=== PATIENT | male | born 1965 | race Caucasian/White ===

== ENCOUNTER 2019-07-08 03:35 | Inpatient (IN) | payer BC ==
[2019-07-08] MEDS ORDERED: IPRATROPIUM/ALBUTEROL (0.5MG/3MG) NEB INH ONE (03:50)
[2019-07-08] MEDS ORDERED: METHYLPREDNISOLONE PF 125MG/VIAL IVP ONE (04:01)
--- NOTE | 2019-07-08 04:19 | Emergency Department Record ---
History of Present Illness - General Chief Complaint: Shortness of breath Stated Complaint: SOB Time Seen by Provider: 07/08/19 03:51 Source: Patient Mode of Arrival: Ambulatory Limitations: No limitations - History of Present Illness Initial Comments: pt started running a fever and went to see his dr 4 days ago. he was told he had the flu but was not tested. he was given tamiflu,steroids and an inhaler. he has been using the inhaler more and more as he feels he cant breathe. he has not had a fever for 2 days MD Complaint: Shortness of breath -: Days(s) Severity: Moderate Consistency: Getting worse Improves With: Nothing Context: Recent illness Associated Symptoms: Cough, Fever - Related Data Home Medications Medication Instructions Recorded Confirmed Last Taken Albuterol Sulfate [Ventolin Hfa] 1 - 2 puff IH .EVERY 4-6 HOURS PRN 07/08/19 07/08/19 07/07/19 Oseltamivir Phosphate [Tamiflu] 75 mg PO BID 07/08/19 07/08/19 07/07/19 Prednisone [Prednisone 5Mg] 5 mg PO DAILY 07/08/19 07/08/19 07/07/19 Allergies Allergy/AdvReac Type Severity Reaction Status Date / Time Penicillins Allergy PT UNSURE Verified 07/08/19 03:40 OF REACTION Sulfa (Sulfonamide Allergy PT UNSURE Verified 07/08/19 03:40 Antibiotics) OF REACTION Travel Screening - Travel/Exposure Within Last 30 Days Have you traveled within the last 30 days?: No - Travel Symptoms Symptom Screening: None Review of Systems Reviewed: No additional complaints except as noted below Constitutional: Reports: As per HPI. Denies: Chills, Fever, Malaise, Night sweats, Weakness, Weight change Eyes: Reports: As per HPI. Denies: Eye discharge, Eye pain, Photophobia, Vision change ENT: Reports: As per HPI. Denies: Congestion, Dental pain, Ear pain, Epistaxis, Hearing loss, Throat pain Respiratory: Reports: As per HPI, Dyspnea. Denies: Cough, Hemoptysis, Stridor, Wheezes Cardiovascular: Reports: As per HPI. Denies: Arrhythmia, Chest pain, Dyspnea on exertion, Edema, Murmurs, Orthopnea, Palpitations, Paroxysmal nocturnal dyspnea, Rheumatic Fever, Syncope Endocrine: Reports: As per HPI. Denies: Fatigue, Heat or cold intolerance, Polydipsia, Polyuria Gastrointestinal: Reports: As per HPI. Denies: Abdominal pain, Constipation, Diarrhea, Hematemesis, Hematochezia, Melena, Nausea, Vomiting Genitourinary: Reports: As per HPI. Denies: Dysuria, Frequency, Hematuria, Incontinence, Retention, Testicular pain, Testicular mass, Urgency Musculoskeletal: Reports: As per HPI. Denies: Arthralgia, Back pain, Gout, Joint swelling, Myalgia, Neck pain Skin: Reports: As per HPI. Denies: Bruising, Change in color, Change in hair/nails, Lesions, Pruritus, Rash Neurological: Reports: As per HPI. Denies: Abnormal gait, Confusion, Headache, Numbness, Paresthesias, Seizure, Tingling, Tremors, Vertigo, Weakness Psychiatric: Reports: As per HPI. Denies: Anxiety, Auditory hallucinations, Depression, Homicidal thoughts, Suicidal thoughts, Visual hallucinations Hematological/Lymphatic: Reports: As per HPI. 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 - GI Hx GI Disorders: No - Hx Genitourinary Disorders: No - ENDOCRINE Hx Endocrine Disorders: No - MUSCULOSKELETAL Hx Musculoskeletal Disorders: No - PSYCH Hx Psych Problems: No - HEMATOLOGY/ONCOLOGY Hx Hematology/Oncology Disorders: No Family Medical History Any Significant Family History?: Yes Hx Cancer: Mother *Cancer Comment: uterine Physical Exam - General General Appearance: Alert, Oriented x3, Cooperative, Mild distress - Head Head exam: Normal inspection - Eye Eye exam: Normal appearance, PERRL, EOMI Pupils: Normal accommodation - ENT ENT exam: Normal exam, Mucous membranes moist, Normal external ear exam, Normal orophraynx Ear exam: Normal external inspection. negative: External canal tenderness Nasal Exam: Normal inspection. negative: Discharge, Sinus tenderness Mouth exam: Normal external inspection, Tongue normal Teeth exam: Normal inspection. negative: Dental caries Throat exam: Normal inspection. negative: Tonsillar erythema, Tonsillar exudate - Neck Neck exam: Normal inspection, Full ROM. negative: Tenderness - Respiratory Respiratory exam: Respiratory distress, Wheezes - Cardiovascular Cardiovascular Exam: Regular rate, Normal rhythm, Normal heart sounds - GI/Abdominal GI/Abdominal exam: Soft, Normal bowel sounds. negative: Tenderness - Rectal Rectal exam: Deferred - exam: Deferred - Extremities Extremities exam: Normal inspection, Full ROM, Normal capillary refill. negative: Tenderness - Back Back exam: Reports: Normal inspection, Full ROM. 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 he contd to be dyspneic. his l sided wheezes became crackles. cxr showed a patchy infiltrate Medical Decision Making - Lab Data Result diagrams: 07/08/19 03:40 07/08/19 03:40 Disposition Disposition: Admit Clinical Impression: Pneumonia and influenza Disposition: Still a Patient at [facility] Decision to Admit: Admit from ER Decision to Admit Date: 07/08/19 Decision to Admit Time: 05:51 Forms: Patient Portal Access Quality - Quality Measures Quality Measures: N/A - Blood Pressure Screening Does Patient Have Any of the Following: No Blood Pressure Classification: Hypertensive Reading Systolic Measurement: 147 Diastolic Measurement: 104 Screening for High Blood Pressure: < First Hypertensive BP, F/U Documented > [[id number]] First Hypertensive Follow-up Interventions: Follow-up with rescreen GT 1 day and LT 4 weeks.
[2019-07-08] MEDS ORDERED: ALBUTEROL (0.5% CONCENTRATED) 2.5 MG/0.5 ML VIAL.NEB INH ONE (04:22)
[2019-07-08] MEDS ORDERED: ALBUTEROL SULFATE (0.083%) 2.5 MG/3 ML NEB INH ONE (04:22)
[2019-07-08 04:23] LABS: BLOOD UREA NITROGEN 16 mg/dL (6-20); CREATININE 0.8 mg/dL (0.7-1.2); EST GLOMERULAR FILTRATION RATE > 60 mL/min
[2019-07-08 04:24] LABS: TOTAL PROTEIN 7.9 g/dL (6.6-8.7)
[2019-07-08 04:26] LABS: GLUCOSE,RANDOM 124 mg/dL (74-109)
[2019-07-08 04:29] LABS: ALB/GLOB RATIO 1.4 (1.1-1.8); ALBUMIN 4.6 g/dL (4.0-5.0); ALKALINE PHOSPHATASE 64 U/L (40-129); ALT/SGPT 21 U/L (<41); AST/SGOT 26 U/L (10.0-50.0)
[2019-07-08 04:32] LABS: NTpro B-NATRIURETIC PEPTIDE 61.63 pg/mL (<125)
[2019-07-08 04:38] LABS: ABSOLUTE NEUTROPHIL COUNT 7.99; MEAN CORPUSCULAR HGB CONC 34.1 g/dl (32-36); RED BLOOD COUNT 4.55 M/uL (4.40-5.70); WHITE BLOOD COUNT W/O DIFF 11.1 K/uL (4.2-12.2)
[2019-07-08 04:39] LABS: BASO % 0.3 % (0-6); EOS % 0.1 % (0-6); LYMPH % 16.2 % (16-45); MEAN CELL VOLUME 96.7 fl (81-97); MEAN PLATELET VOLUME 10.8 fl (7.4-10.4); MONO % 11.4 % (0-9); PLATELET COUNT 172 K/uL (130-400)
[2019-07-08] MEDS ORDERED: 0.9 % SODIUM CHLORIDE 1,000 ML BAG IV ONE (04:44)
[2019-07-08 05:16] LABS: URINE APPEARANCE CLEAR; URINE BILIRUBIN SMALL (NEGATIVE); URINE COLOR DARK YELLOW; URINE GLUCOSE (UA) NEGATIVE (NEGATIVE); URINE KETONE NEGATIVE (NEGATIVE)
[2019-07-08 05:17] LABS: URINE BLOOD MODERATE (NEGATIVE); URINE LEUKOCYTE ESTERASE NEGATIVE (NEGATIVE); URINE NITRITE NEGATIVE (NEGATIVE); URINE UROBILINOGEN 0.2 E.U./dL (0.20 - 1.00)
[2019-07-08 05:18] LABS: URINE BACTERIA FEW; URINE EPITHELIAL CELLS 0 - 2 (FEW); URINE MUCUS MODERATE; URINE WBC 0 - 2 (0-2/hpf)
--- NOTE | 2019-07-08 05:41 | RADIOLOGY REPORT ---
EXAMINATION: Two View Chest Radiographs EXAM DATE: 07/08/2019 5:38 AM TECHNIQUE: Frontal and lateral views INDICATION: sob COMPARISON: None ENCOUNTER: Not applicable FINDINGS: The heart, mediastinum, and pulmonary vasculature are normal. No lung consolidation or pleural effu sions are present. IMPRESSION: No acute pulmonary disease process Dictated by: Isis Jean DO on 07/08/2019 5:39 AM. .
[2019-07-08 06:23] LABS: INFLUENZA A NEGATIVE (NEGATIVE); INFLUENZA B NEGATIVE (NEGATIVE)
[2019-07-08] MEDS: IPRATROPIUM/ALBUTEROL (0.5MG/3MG) NEB INH PRN ×2 (09:25→18:23)
[2019-07-08] MEDS: METHYLPREDNISOLONE PF 125MG/VIAL IVP SCH (10:07)
[2019-07-08] MEDS: OSTELTAMIVIR 75 MG CAP PO SCH ×2 (10:09→21:37)
[2019-07-08] MEDS: CEFTRIAXONE SODIUM 1 GM in 0.9 % SODIUM CHLORIDE 100ML 100 ML IVPB SCH (10:09)
[2019-07-08] MEDS ORDERED: IBUPROFEN 600 MG TABLET PO PRN (10:30)
[2019-07-08] MEDS: GUAIFENESIN 600 MG TABCR PO SCH ×2 (10:48→21:36)
[2019-07-08] MEDS: GUAIFENESIN/D-METH. 10 ML UDC PO PRN (11:02)
[2019-07-08] MEDS: AZITHROMYCIN 500 MG in 0.9 % SODIUM CHLORIDE 250ML 250 ML IVPB SCH (11:36)
--- NOTE | 2019-07-08 13:47 | History & Physical ---
History of Present Illness - Date of Service Date of Service for History & Physical: 07/10/19 - History of Present Illness Admitting Diagnosis: pneumonia with hypoxia History of Present Illness: Pt presents to [facility] ER for TRINI and cough. Had seen Dr Le as a new pt, reported these complaints, was not swabbed for flu but was given tamiflu at that time. Pt continued to decline and went to er for evaluation, ER FLU testing neg. Pt was 1.5ppd smoker for 30+ yrs, reports quiting this r/t how sick he feels and is ready to quit. 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 Is the only sick member in immediate family. Pt given 1L NS, Duoneb x1. Alb 2.5mg x2, Zithromax 500mg, Rocpehin 1gm, solumedr ol 125,mg IVP CXR neg for acute process EKG NSR HR 93 07/08/19 03:39 Temperature 98.0 F Pulse Rate 97 H Respiratory 28 H Rate Respiratory WNL Depth Respiratory WNL Effort Respiratory Irregular Pattern Blood Pressure 147/104 Blood Pressure Semi-Fowlers Position Pulse Ox 91 L Oxygen Delivery Room Air Method Laboratory Tests 07/08/19 07/08/19 07/08/19 03:40 03:40 03:40 WBC 11.1 RBC 4.55 Hgb 15.0 Hct 44.0 MCV 96.7 Plt Count 172 Absolute Neutrophils 7.99 Sodium 140 Potassium 3.5 Chloride 100 Carbon Dioxide 26.0 Anion Gap 14.0 BUN 16 Creatinine 0.8 Estimated GFR > 60 Random Glucose 124 H Calcium 9.5 Total Bilirubin 0.80 AST 26 ALT 21 Alkaline Phosphatase 64 Troponin T < 0.010 NT-Pro-B Natriuret Pep 61.63 Total Protein 7.9 Albumin 4.6 Globulin 3.3 Albumin/Globulin Ratio 1.4 07/08/19 Pt in bed, dry cough and audible wheezing noted. Is sweating while sitting in bed and able to talk in complete sentences but has noted labored breathing. Lungs are wheezing in all flan[place] but no crackles or coarse sounds noted. Heart RRR no murmr, no lower leg edema. BS x4, non tender, soft abdomen. POC to continue abx, steroids, alb neb tx and repeat labs in the AM. Will get pt started on maintenance COPD meds. Pulm consult if no improvement with treatment. Vitals q8 PCP Mimi Travel Screening - Travel/Exposure Within Last 30 Days Have you traveled within the last 30 days?: No - Travel/Exposure Within Last Year Have you traveled outside the [place] in the last year?: No - Additonal Travel Details Have you been exposed to anyone with a communicable illness?: No - Travel Symptoms Symptom Screening: Fever (GT 100.4), Headache, Joint & Muscle Aches, Weakness, Fatigue, Diarrhea, Lack of Appetite, Chills Review of Systems Constitutional: Reports: As per HPI. Denies: Chills, Fever, Malaise, Night sweats, Weakness, Weight change Eyes: Reports: As per HPI. Denies: Eye discharge, Eye pain, Photophobia, Vision change ENT: Reports: As per HPI. Denies: Congestion, Dental pain, Ear pain, Epistaxis, Hearing loss, Throat pain Respiratory: Reports: As per HPI, Dyspnea. Denies: Cough, Hemoptysis, Stridor, Wheezes Cardiovascular: Reports: As per HPI. Denies: Arrhythmia, Chest pain, Dyspnea on exertion, Edema, Murmurs, Orthopnea, Palpitations, Paroxysmal nocturnal dyspnea, Rheumatic Fever, Syncope Endocrine: Reports: As per HPI. Denies: Fatigue, Heat or cold intolerance, Polydipsia, Polyuria Gastrointestinal: Reports: As per HPI. Denies: Abdominal pain, Constipation, Diarrhea, Hematemesis, Hematochezia, Melena, Nausea, Vomiting Genitourinary: Reports: As per HPI. Denies: Dysuria, Frequency, Hematuria, Incontinence, Retention, Testicular pain, Testicular mass, Urgency Musculoskeletal: Reports: As per HPI. Denies: Arthralgia, Back pain, Gout, Joint swelling, Myalgia, Neck pain Skin: Reports: As per HPI. Denies: Bruising, Change in color, Change in hair/nails, Lesions, Pruritus, Rash Neurological: Reports: As per HPI. Denies: Abnormal gait, Confusion, Headache, Numbness, Paresthesias, Seizure, Tingling, Tremors, Vertigo, Weakness Psychiatric: Reports: As per HPI. Denies: Anxiety, Auditory hallucinations, Depression, Homicidal thoughts, Suicidal thoughts, Visual hallucinations Hematological/Lymphatic: Reports: As per HPI. 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 - GI Hx GI Disorders: No - Hx Genitourinary Disorders: No - ENDOCRINE Hx Endocrine Disorders: No - MUSCULOSKELETAL Hx Musculoskeletal Disorders: No - PSYCH Hx Psych Problems: No - HEMATOLOGY/ONCOLOGY Hx Hematology/Oncology Disorders: No Family Medical History Any Significant Family History?: No Hx Cancer: Mother *Cancer Comment: uterine H&P Meds/Allergies - Allergies Allergies: Allergies Allergy/AdvReac Type Severity Reaction Status Date / Time Penicillins Allergy PT UNSURE Verified 07/08/19 03:40 OF REACTION Sulfa (Sulfonamide Allergy PT UNSURE Verified 07/08/19 03:40 Antibiotics) OF REACTION - Home Medications Home Medications Medication Instructions Recorded Confirmed Last Taken Albuterol Sulfate [Ventolin Hfa] 1 - 2 puff IH .EVERY 4-6 HOURS PRN 07/08/19 07/08/19 07/07/19 Oseltamivir Phosphate [Tamiflu] 75 mg PO BID 07/08/19 07/08/19 07/07/19 Prednisone [Prednisone 5Mg] 5 mg PO DAILY 07/08/19 07/08/19 07/07/19 - Active Medications Active Medications: Current Medications Albuterol Sulfate (Albuterol Sulfate) 2.5 mg INH RESP.Q2H PRN PRN Reason: DIFFICULTY IN BREATHING Albuterol/Ipratropium (Duoneb) 3 ml INH RESP.Q6H PRN PRN Reason: WHEEZING Last Admin: 07/08/19 09:25 Dose: 3 ml Documented by: Guaifenesin (Mucinex) 600 mg PO BID ONEIL Last Admin: 07/08/19 10:48 Dose: 600 mg Documented by: Guaifenesin (Robitussin Dm) 10 ml PO Q6H PRN PRN Reason: COUGH Last Admin: 07/08/19 11:02 Dose: 10 ml Documented by: Ceftriaxone Sodium 1 gm/ (Sodium Chloride) 100 mls @ 100 mls/hr IVPB Q24H [facility] Stop: 07/13/19 09:01 Last Infusion: 07/08/19 11:47 Dose: Infused Documented by: Azithromycin 500 mg/ Sodium (Chloride) 250 mls @ 250 mls/hr IVPB Q24H [facility] Stop: 07/13/19 10:01 Last Infusion: 07/08/19 12:53 Dose: Infused Documented by: Ibuprofen (Motrin 600mg) 600 mg PO Q8H PRN PRN Reason: PAIN - MILD TO MODERATE (1-7) Last Admin: 07/08/19 10:48 Dose: 600 mg Documented by: Methylprednisolone Sodium Succinate (Solu-Medrol) 125 mg IVP DAILY [facility] Last Admin: 07/08/19 10:07 Dose: 125 mg Documented by: Oseltamivir Phosphate (Tamiflu) 75 mg PO BID [facility] Last Admin: 07/08/19 10:09 Dose: 75 mg Documented by: Physical Exam - Vital Signs Vital Signs: Vital Signs - Last 24 Hrs Temp Pulse Pulse Resp BP BP Pulse Ox 07/08/19 11:43 98.8 F 83 20 144/79 91 L 07/08/19 09:06 92 H 16 95 07/08/19 09:04 93 H 16 99 07/08/19 08:47 82 15 07/08/19 07:33 98.8 F 82 21 150/88 96 07/08/19 07:07 84 22 124/98 94 L 07/08/19 06:07 86 20 92 L 07/08/19 05:37 100 H 34 H 146/82 93 L 07/08/19 05:00 148/78 07/08/19 04:45 94 H 20 96 07/08/19 04:39 98.5 F 117 H 30 H 136/90 97 07/08/19 04:24 88 16 93 L 07/08/19 04:04 94 H 24 137/82 94 L 07/08/19 04:02 91 H 20 94 L 07/08/19 03:39 98.0 F 97 H 28 H 147/104 91 L - General General Appearance: Alert, Oriented x3, Cooperative, Mild distress Limitations: No limitations - Head Head exam: Normal inspection - Eye Eye exam: Normal appearance, PERRL, EOMI Pupils: Normal accommodation - ENT ENT exam: Normal exam, Mucous membranes moist, Normal external ear exam, Normal orophraynx Ear exam: Normal external inspection. negative: External canal tenderness Nasal Exam: Normal inspection. negative: Discharge, Sinus tenderness Mouth exam: Normal external inspection, Tongue normal Teeth exam: Normal inspection. negative: Dental caries Throat exam: Normal inspection. negative: Tonsillar erythema, Tonsillar exudate - Neck Neck exam: Normal inspection, Full ROM. negative: Tenderness - Respiratory Respiratory exam: Respiratory distress, Wheezes - Cardiovascular Cardiovascular Exam: Regular rate, Normal rhythm, Normal heart sounds Peripheral Pulses: 3+: Radial (R), Radial (L), Dorsalis Pedis (R), Dorsalis Pedis (L) - GI/Abdominal GI/Abdominal exam: Soft, Normal bowel sounds. negative: Tenderness - Rectal Rectal exam: Deferred - exam: Deferred - Extremities Extremities exam: Normal inspection, Full ROM, Normal capillary refill. negative: Tenderness - Back Back exam: Reports: Normal inspection, Full ROM. Denies: Muscle spasm, Rash noted, Tenderness - Neurological Neurological exam: Alert, Normal gait, Oriented X3, Reflexes normal - Psychiatric Psychiatric exam: Normal affect, Normal mood - Skin Skin exam: Dry, Intact, Normal color, Warm Results - Labs Result Diagrams: 07/10/19 06:35 07/10/19 06:35 Labs Last 24 Hours: Laboratory Results - last 24 hr 07/08/19 07/08/19 07/08/19 03:40 03:40 03:40 WBC 11.1 RBC 4.55 Hgb 15.0 Hct 44.0 MCV 96.7 MCH 33.0 MCHC 34.1 RDW 13.0 Plt Count 172 MPV 10.8 H Gran % 72.0 Lymphocytes % 16.2 Monocytes % 11.4 H Eosinophils % 0.1 Basophils % 0.3 Absolute Neutrophils 7.99 D-Dimer 0.37 Sodium 140 Potassium 3.5 Chloride 100 Carbon Dioxide 26.0 Anion Gap 14.0 BUN 16 Creatinine 0.8 Estimated GFR > 60 Random Glucose 124 H Calcium 9.5 Total Bilirubin 0.80 AST 26 ALT 21 Alkaline Phosphatase 64 Troponin T NT-Pro-B Natriuret Pep 61.63 Total Protein 7.9 Albumin 4.6 Globulin 3.3 Albumin/Globulin Ratio 1.4 Urine Color Urine Appearance Urine pH Ur Specific Welda Urine Protein Urine Glucose (UA) Urine Ketones Urine Blood Urine Nitrite Urine Bilirubin Urine Urobilinogen Ur Leukocyte Esterase Urine RBC Urine WBC Ur Epithelial Cells Urine Bacteria Urine Mucus Influenza Type A Ag Influenza Type B Ag 07/08/19 07/08/19 07/08/19 03:40 04:30 04:45 WBC RBC Hgb Hct MCV MCH MCHC RDW Plt Count MPV Gran % Lymphocytes % Monocytes % Eosinophils % Basophils % Absolute Neutrophils D-Dimer Sodium Potassium Chloride Carbon Dioxide Anion Gap BUN Creatinine Estimated GFR Random Glucose Calcium Total Bilirubin AST ALT Alkaline Phosphatase Troponin T < 0.010 NT-Pro-B Natriuret Pep Cancelled Total Protein Albumin Globulin Albumin/Globulin Ratio Urine Color Dark yellow Urine Appearance Clear Urine pH 6.5 Ur Specific Welda >= 1.030 Urine Protein 30 mg/dl H Urine Glucose (UA) Negative Urine Ketones Negative Urine Blood Moderate Urine Nitrite Negative Urine Bilirubin Small H Urine Urobilinogen 0.2 Ur Leukocyte Esterase Negative Urine RBC 10 - 15 Urine WBC 0 - 2 Ur Epithelial Cells 0 - 2 Urine Bacteria Few Urine Mucus Moderate Influenza Type A Ag Influenza Type B Ag 07/08/19 06:15 WBC RBC Hgb Hct MCV MCH MCHC RDW Plt Count MPV Gran % Lymphocytes % Monocytes % Eosinophils % Basophils % Absolute Neutrophils D-Dimer Sodium Potassium Chloride Carbon Dioxide Anion Gap BUN Creatinine Estimated GFR Random Glucose Calcium Total Bilirubin AST ALT Alkaline Phosphatase Troponin T NT-Pro-B Natriuret Pep Total Protein Albumin Globulin Albumin/Globulin Ratio Urine Color Urine Appearance Urine pH Ur Specific [place] Urine Protein Urine Glucose (UA) Urine Ketones Urine Blood Urine Nitrite Urine Bilirubin Urine Urobilinogen Ur Leukocyte Esterase Urine RBC Urine WBC Ur Epithelial Cells Urine Bacteria Urine Mucus Influenza Type A Ag Negative Influenza Type B Ag Negative - Imaging and Cardiology Chest x-ray Status: Report reviewed VTE H&P Assessment - Risk for VTE Risk for VTE: Yes Risk Level: Moderate Risk Assessment Date: 07/08/19 Risk Assessment Time: 13:46 VTE Orders Placed or Will Be Placed: Yes Plan - Inpatient Certification Inpatient Certification: Admit to inpatient care: Based on my medical assessment, after consideration of patient's risk factors (age, co-morbidities and patient presenting symptoms and acuity), I expect that this patient will remain in the hospital greater than or equal to two midnights and that the services needed warrant inpatient care because: Patient Risk Factors: hypoxia, resp distress Estimated length of stay: [] The patient may reasonably be expected to be discharged or transferred to a hospital within 96 hours after admission to [facility]. Services needed: [] Post hospital care (if known): [] I certify that my determination is in accordance with my understanding of Medicare requirements for reasonable and necessary inpatient services. 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, no h/o asthma, PNA, or COPD (2) Hypoxia Current Visit: Yes Status: Acute Base Code: R09.02 - HYPOXEMIA Comment: 07/10/19 -pt was found to have sats 91% RA with labored breathing, increasing TRINI that req venti mask in the ER -after steroids and alb tx, pt able to maintain sats high 90s RA -continue POC and monitoring (3) DVT prophylaxis Current Visit: Yes Status: Acute Base Code: Z29.9 - ENCOUNTER FOR PROPHYLACTIC MEASURES, UNSPECIFIED Comment: 07/08/19 -mod risk, start lovenox 40mg SQ if pt staying longer than 24 hours (4) Full code status Current Visit: Yes Status: Acute Base Code: Z78.9 - OTHER SPECIFIED HEALTH STATUS Comment: 07/08/19 -full code
[2019-07-08] MEDS: BREO (FLUTICASONE/VILANTEROL) 100MCG/25MCG INHALER INH SCH (14:41)
[2019-07-08] MEDS: ALBUTEROL SULFATE (0.083%) 2.5 MG/3 ML NEB INH PRN (14:41)
[2019-07-08] MEDS ORDERED: FLU VAC QS 2019-20 (INPT, 6MO+) 60MCG/0.5ML IM ONE (19:53)
[2019-07-08] MEDS ORDERED: PNEUM 23-VAL ADULT IM ONE (19:54)
[2019-07-08] MEDS ORDERED: DIPHENHYDRAMINE HCL 25 MG CAPSULE PO PRN (21:33)
[2019-07-09 06:37] LABS: HEMATOCRIT 40.2 % (42.0-52.0); HEMOGLOBIN 13.5 gm/dl (14.0-18.0); MEAN CELL VOLUME 96.4 fl (81-97); MEAN CORPUSCULAR HGB CONC 33.6 g/dl (32-36); MEAN PLATELET VOLUME 10.5 fl (7.4-10.4); PLATELET COUNT 171 K/uL (130-400); RED BLOOD COUNT 4.17 M/uL (4.40-5.70); RED CELL DISTRIBUTION WIDTH 12.8 % (11.5-14.5); WHITE BLOOD COUNT W/O DIFF 10.2 K/uL (4.2-12.2)
[2019-07-09 06:43] LABS: MEAN CORPUSCULAR HEMOGLOBIN 32.3 pg (27-33)
[2019-07-09 06:49] LABS: BLOOD UREA NITROGEN 17 mg/dL (6-20); CREATININE 0.7 mg/dL (0.7-1.2); EST GLOMERULAR FILTRATION RATE > 60 mL/min; GLUCOSE,RANDOM 127 mg/dL (74-109)
[2019-07-09 07:06] LABS: PLATELET ESTIMATE NORMAL (NORMAL)
[2019-07-09 07:07] LABS: ABSOLUTE NEUTROPHIL COUNT 7.55
[2019-07-09] MEDS: IPRATROPIUM/ALBUTEROL (0.5MG/3MG) NEB INH PRN ×2 (09:07→18:29)
[2019-07-09] MEDS: BREO (FLUTICASONE/VILANTEROL) 100MCG/25MCG INHALER INH SCH (09:07)
[2019-07-09] MEDS: ENOXAPARIN 40 MG/0.4 ML SYR SQ SCH (09:35)
[2019-07-09] MEDS: OSTELTAMIVIR 75 MG CAP PO SCH (09:36)
[2019-07-09] MEDS: GUAIFENESIN 600 MG TABCR PO SCH ×2 (09:36→21:29)
[2019-07-09] MEDS: CEFTRIAXONE SODIUM 1 GM in 0.9 % SODIUM CHLORIDE 100ML 100 ML IVPB SCH (09:38)
[2019-07-09] MEDS: NICOTINE14 MG/24 HOUR PATCH TD SCH (09:46)
[2019-07-09] MEDS: METHYLPREDNISOLONE PF 125MG/VIAL IVP SCH (09:47)
[2019-07-09] MEDS: AZITHROMYCIN 500 MG TABLET PO SCH (10:37)
[2019-07-09] MEDS: AZITHROMYCIN 500 MG in 0.9 % SODIUM CHLORIDE 250ML 250 ML IVPB SCH (10:38)
[2019-07-09] MEDS: GUAIFENESIN/D-METH. 10 ML UDC PO PRN ×2 (13:33→19:50)
[2019-07-09] MEDS: ALBUTEROL SULFATE (0.083%) 2.5 MG/3 ML NEB INH PRN (13:40)
--- NOTE | 2019-07-09 15:22 | Physician Progress Note ---
Subjective - Date Date of Physician Progress Note: 07/09/19 - Subjective Subjective Comment: Pt resting in bed, appears SOB reporting he ambulated to and from the restroom (approx 10 feet) to urinate and is SOB. had a breathing tx prev to ambulation and still having labored breathing. has dry cough but improving since arrival. having pain in upper reyna abd/lower ribs when coughing but is just sore/achy. Location: Abdomen, Other (lower ribs) Radiation: Non-Radiating Severity scale (1-10): 4 Quality: Aching Consistency: Intermittent Worsens with: Rest Objective - Vital Signs Vital Signs: Vital Signs - Last 24 Hrs Temp Pulse Pulse Pulse Resp BP Pulse Ox 07/09/19 13:40 103 H 20 97 07/09/19 09:12 87 20 95 07/09/19 09:08 87 20 95 07/09/19 07:45 97.8 F 76 124/67 92 L 07/09/19 05:00 98.2 F 68 18 129/75 93 L 07/09/19 00:00 84 18 93 L 07/08/19 21:00 76 16 07/08/19 20:00 98.1 F 89 20 129/74 94 L 07/08/19 18:23 81 18 94 L 07/08/19 16:09 98.6 F 80 16 94/61 91 L - General General Appearance: Alert, Oriented x3, Cooperative, Mild distress Limitations: No limitations - Head Head exam: Normal inspection - Eye Eye exam: Normal appearance, PERRL, EOMI Pupils: Normal accommodation - ENT ENT exam: Normal exam, Mucous membranes moist, Normal external ear exam, Normal orophraynx Ear exam: Normal external inspection. negative: External canal tenderness Nasal Exam: Normal inspection. negative: Discharge, Sinus tenderness Mouth exam: Normal external inspection, Tongue normal Teeth exam: Normal inspection. negative: Dental caries Throat exam: Normal inspection. negative: Tonsillar erythema, Tonsillar exudate - Neck Neck exam: Normal inspection, Full ROM. negative: Tenderness - Respiratory Respiratory exam: Respiratory distress, Wheezes - Cardiovascular Cardiovascular Exam: Regular rate, Normal rhythm, Normal heart sounds - GI/Abdominal GI/Abdominal exam: Soft, Normal bowel sounds. negative: Tenderness - Rectal Rectal exam: Deferred - exam: Deferred - Extremities Extremities exam: Normal inspection, Full ROM, Normal capillary refill. negative: Tenderness - Back Back exam: Reports: Normal inspection, Full ROM. Denies: Muscle spasm, Rash noted, Tenderness - Neurological Neurological exam: Alert, Normal gait, Oriented X3, Reflexes normal - Psychiatric Psychiatric exam: Normal affect, Normal mood - Skin Skin exam: Dry, Intact, Normal color, Warm Assessment and Plan - Assessment and Plan (1) Pneumonia Current Visit: Yes Status: Acute Base Code: J18.9 - PNEUMONIA, UNSPECIFIED ORGANISM Comment: 07/09/19 -pt remains wheezing with poor activity tolerance, req alb neb tx for wheezing a nd SOB -WBC 11.1->10.2 -continue alb, steroids, abx and rest, repeat labs in the AM 07/08/19 -no acute process, but pt had sudden onset TRINI, wheezing, coughing and fatigue -Flu neg -alb neb tx q4 hrs PRN, steroids, abx, supplementary O2 for sat >92% -Pt has no known sick contacts 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, no h/o asthma, PNA, or COPD (2) Hypoxia Current Visit: Yes Status: Acute Base Code: R09.02 - HYPOXEMIA Comment: 07/09/19 pt remains SOB but sats are in the mid 90s RA -continue to monitor, re-eval in the AM 07/08/19 -pt was found to have sats 91% RA with labored breathing, increasing TRINI that req venti mask in the ER -after steroids and alb tx, pt able to maintain sats high 90s RA -continue POC and monitoring (3) DVT prophylaxis Current Visit: Yes Status: Acute Base Code: Z29.9 - ENCOUNTER FOR PROPHYLACTIC MEASURES, UNSPECIFIED Comment: 07/08/19 -mod risk, start lovenox 40mg SQ (4) Full code status Current Visit: Yes Status: Acute Base Code: Z78.9 - OTHER SPECIFIED HEALTH STATUS Comment: 07/09/19 -full code Results - Labs Result Diagrams: 07/10/19 06:35 07/10/19 06:35 Labs Last 24 Hours: Laboratory Results - last 24 hr 07/09/19 07/09/19 06:14 06:14 WBC 10.2 RBC 4.17 L Hgb 13.5 L Hct 40.2 L MCV 96.4 MCH 32.3 MCHC 33.6 RDW 12.8 Plt Count 171 MPV 10.5 H Neutrophils % 74.0 Band Neutrophils % 0.0 Eosinophils % Not Reportable Basophils % Not Reportable Absolute Neutrophils 7.55 Lymphocytes 15.0 L Monocytes 11.0 H Basophils 0.0 Platelet Estimate Normal RBC Morphology Normal Eosinophil Count 0.0 Sodium 140 Potassium 3.6 Chloride 100 Carbon Dioxide 28.0 Anion Gap 12.0 BUN 17 Creatinine 0.7 Estimated GFR > 60 Random Glucose 127 H Calcium 9.3 DVT/PE Assessment - Risk for VTE Risk for VTE: No Risk Level: Moderate Risk Assessment Date: 07/08/19 Risk Assessment Time: 13:46 VTE Orders Placed or Will Be Placed: Yes - Active Medicaitons Current Medications: Current Medications Albuterol Sulfate (Albuterol Sulfate) 2.5 mg INH RESP.Q2H PRN PRN Reason: DIFFICULTY IN BREATHING Last Admin: 07/09/19 13:40 Dose: 2.5 mg Documented by: Albuterol/Ipratropium (Duoneb) 3 ml INH RESP.Q6H PRN PRN Reason: WHEEZING Last Admin: 07/09/19 09:07 Dose: 3 ml Documented by: Azithromycin (Zithromax) 500 mg PO DAILY [facility] Last Admin: 07/09/19 10:37 Dose: 500 mg Documented by: Diphenhydramine HCl (Benadryl Capsule) 50 mg PO Q6H PRN PRN Reason: INSOMNIA Last Admin: 07/08/19 21:37 Dose: 50 mg Documented by: Enoxaparin Sodium (Lovenox) 40 mg SQ DAILY [facility] Last Admin: 07/09/19 09:35 Dose: 40 mg Documented by: Guaifenesin (Mucinex) 600 mg PO BID [facility] Last Admin: 07/09/19 09:36 Dose: 600 mg Documented by: Guaifenesin (Robitussin Dm) 10 ml PO Q6H PRN PRN Reason: COUGH Last Admin: 07/09/19 13:33 Dose: 10 ml Documented by: Ceftriaxone Sodium 1 gm/ (Sodium Chloride) 100 mls @ 100 mls/hr IVPB Q24H [facility] Stop: 07/13/19 09:01 Last Infusion: 07/09/19 10:38 Dose: Infused Documented by: Ibuprofen (Motrin 600mg) 600 mg PO Q8H PRN PRN Reason: PAIN - MILD TO MODERATE (1-7) Last Admin: 07/08/19 10:48 Dose: 600 mg Documented by: Nicotine (Nicotine 14mg) 1 patch TD Q24H [facility] Last Admin: 07/09/19 09:46 Dose: 1 patch Documented by: Prednisone (Prednisone 20mg) 40 mg PO DAILYWM [facility] AMI Plan - Labs Result Diagrams: 07/10/19 06:35 07/10/19 06:35
[2019-07-09] MEDS ORDERED: BENZONATATE 100 MG CAPSULE PO PRN (15:23)
[2019-07-09] MEDS: CALCIUM CARBONATE 500 MG TAB.CHEW PO PRN (20:02)
[2019-07-10 07:30] LABS: BLOOD UREA NITROGEN 18 mg/dL (6-20); CREATININE 0.7 mg/dL (0.7-1.2); EST GLOMERULAR FILTRATION RATE > 60 mL/min; GLUCOSE,RANDOM 110 mg/dL (74-109)
[2019-07-10 07:44] LABS: HEMATOCRIT 40.7 % (42.0-52.0); HEMOGLOBIN 13.9 gm/dl (14.0-18.0); MEAN CELL VOLUME 96.7 fl (81-97); MEAN CORPUSCULAR HGB CONC 34.2 g/dl (32-36); MEAN PLATELET VOLUME 10.9 fl (7.4-10.4); PLATELET COUNT 194 K/uL (130-400); RED BLOOD COUNT 4.21 M/uL (4.40-5.70); RED CELL DISTRIBUTION WIDTH 12.8 % (11.5-14.5); WHITE BLOOD COUNT W/O DIFF 12.2 K/uL (4.2-12.2)
[2019-07-10] MEDS ORDERED: PREDNISONE 20 MG TAB PO SCH (08:00)
[2019-07-10] MEDS: AZITHROMYCIN 500 MG TABLET PO SCH (09:20)
[2019-07-10] MEDS: NICOTINE14 MG/24 HOUR PATCH TD SCH (09:20)
[2019-07-10] MEDS: GUAIFENESIN 600 MG TABCR PO SCH (09:20)
[2019-07-10] MEDS: ENOXAPARIN 40 MG/0.4 ML SYR SQ SCH (09:20)
[2019-07-10] MEDS ORDERED: CEFTRIAXONE 1GM/50ML BAG 1 GM/50 ML BAG IVPB SCH (09:30)
[2019-07-10] MEDS: IPRATROPIUM/ALBUTEROL (0.5MG/3MG) NEB INH PRN (09:41)
[2019-07-10] MEDS: BREO (FLUTICASONE/VILANTEROL) 100MCG/25MCG INHALER INH SCH (09:41)
[2019-07-10] MEDS: CEFTRIAXONE SODIUM 1 GM in 0.9 % SODIUM CHLORIDE 100ML 100 ML IVPB SCH (09:55)
[2019-07-10] MEDS: CALCIUM CARBONATE 500 MG TAB.CHEW PO PRN (15:38)
--- NOTE | 2019-07-10 15:56 | Discharge Summary ---
Providers Discharge Summary Date: 07/10/19 Date of admission: 07/08/19 07:30 Expected Date of Discharge: 07/10/19 Attending physician: MANN WEATHERS Primary care physician: Paul Le Consults: Consult Orders 07/09/19 15:22 Consult NOW Consulting Provider: GLADYS CARNES Physician Instructions: Reason For Exam: new onset COPD vs Asthma Physical Exam - Vital Signs Vital Signs: Vital Signs - Last 24 Hrs Temp Pulse Pulse Resp BP Pulse Ox 07/10/19 12:00 76 16 110/62 93 L 07/10/19 09:50 66 18 07/10/19 09:41 66 18 94 L 07/10/19 09:00 76 16 07/10/19 07:50 97.9 F 64 16 140/85 94 L 07/10/19 05:00 98.0 F 60 18 134/80 96 07/09/19 23:59 66 18 94 L 07/09/19 20:00 98.7 F 77 18 131/75 93 L 07/09/19 18:29 81 20 96 07/09/19 17:00 79 16 130/70 93 L - General General Appearance: Alert, Oriented x3, Cooperative, No acute distress Limitations: No limitations - Head Head exam: Normal inspection - Eye Eye exam: Normal appearance, PERRL, EOMI Pupils: Normal accommodation - ENT ENT exam: Normal exam, Mucous membranes moist, Normal external ear exam, Normal orophraynx Ear exam: Normal external inspection. negative: External canal tenderness Nasal Exam: Normal inspection. negative: Discharge, Sinus tenderness Mouth exam: Normal external inspection, Tongue normal Teeth exam: Normal inspection. negative: Dental caries Throat exam: Normal inspection. negative: Tonsillar erythema, Tonsillar exudate - Neck Neck exam: Normal inspection, Full ROM. negative: Tenderness - Respiratory Respiratory exam: Decreased breath sounds, Wheezes. negative: Respiratory distress - Cardiovascular Cardiovascular Exam: Regular rate, Normal rhythm, Normal heart sounds Peripheral Pulses: 3+: Radial (R), Radial (L), Dorsalis Pedis (R), Dorsalis Pedis (L) - GI/Abdominal GI/Abdominal exam: Soft, Normal bowel sounds. negative: Tenderness - Rectal Rectal exam: Deferred - exam: Deferred - Extremities Extremities exam: Normal inspection, Full ROM, Normal capillary refill. negative: Tenderness - Back Back exam: Reports: Normal inspection, Full ROM. Denies: Muscle spasm, Rash noted, Tenderness - Neurological Neurological exam: Alert, Normal gait, Oriented X3, Reflexes normal - Psychiatric Psychiatric exam: Normal affect, Normal mood - Skin Skin exam: Dry, Intact, Normal color, Warm Hospitalization - Hospitalization Admission Diagnosis: pneumonia with hypoxia - Problem List/Discharge Diagnosis (1) Pneumonia Current Visit: Yes Status: Acute Base Code: J18.9 - PNEUMONIA, UNSPECIFIED ORGANISM Comment: 07/10/19 -pt appears well, VSS, 93-94% RA -alb neb tx q4 home, continue steroids and antibiotics, -Pulm consulted, reports current issue is consistent with asthma exacerbation (new onset) continue current tx, no work for 2 weeks f/u Pulm in 2 weeks 07/09/19 -pt remains wheezing with poor activity tolerance, req alb neb tx for wheezing and SOB -WBC 11.1->10.2 -continue alb, steroids, abx and rest, repeat labs in the AM 07/08/19 -no acute process, but pt had sudden onset TRINI, wheezing, coughing and fatigue -Flu neg -alb neb tx q4 hrs PRN, steroids, abx, supplementary O2 for sat >92% -Pt has no known sick contacts 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, no h/o asthma, PNA, or COPD (2) Hypoxia Current Visit: Yes Status: Acute Base Code: R09.02 - HYPOXEMIA Comment: 07/10/19 -pt has improved SOB, ambulating with no difficulty, still wheezing but sats in the mid 90s RA 07/09/19 pt remains SOB but sats are in the mid 90s RA -continue to monitor, re-eval in the AM 07/08/19 -pt was found to have sats 91% RA with labored breathing, increasing TRINI that req venti mask in the ER -after steroids and alb tx, pt able to maintain sats high 90s RA -continue POC and monitoring (3) DVT prophylaxis Current Visit: Yes Status: Acute Base Code: Z29.9 - ENCOUNTER FOR PROPHYLACTIC MEASURES, UNSPECIFIED Comment: 07/10/19 -mod risk, start lovenox 40mg SQ (4) Full code status Current Visit: Yes Status: Acute Base Code: Z78.9 - OTHER SPECIFIED HEALTH STATUS Comment: 07/10/19 -full code - Hospitalization Course Disposition: Home, Self-Care Hospital Course: Pt presents to [facility] ER for TRINI and cough. Had seen Dr Le as a new pt, reported these complaints, was not swabbed for flu but was given tamiflu at that time. Pt continued to decline and went to er for evaluation, ER FLU testing neg. Pt was 1.5ppd smoker for 30+ yrs, reports quiting this r/t how sick he feels and is ready to quit. 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 Is the only sick member in immediate family. Pt given 1L NS, Duoneb x1. Alb 2.5mg x2, Zithromax 500mg, Rocpehin 1gm, solumedrol 125,mg IVP CXR neg for acute process EKG NSR HR 93 07/08/19 03:39 Temperature 98.0 F Pulse Rate 97 H Respiratory 28 H Rate Respiratory WNL Depth Respiratory WNL Effort Respiratory Irregular Pattern Blood Pressure 147/104 Blood Pressure Semi-Fowlers Position Pulse Ox 91 L Oxygen Delivery Room Air Method Laboratory Tests 07/08/19 07/08/19 07/08/19 03:40 03:40 03:40 WBC 11.1 RBC 4.55 Hgb 15.0 Hct 44.0 MCV 96.7 Plt Count 172 Absolute Neutrophils 7.99 Sodium 140 Potassium 3.5 Chloride 100 Carbon Dioxide 26.0 Anion Gap 14.0 BUN 16 Creatinine 0.8 Estimated GFR > 60 Random Glucose 124 H Calcium 9.5 Total Bilirubin 0.80 AST 26 ALT 21 Alkaline Phosphatase 64 Troponin T < 0.010 NT-Pro-B Natriuret Pep 61.63 Total Protein 7.9 Albumin 4.6 Globulin 3.3 Albumin/Globulin Ratio 1.4 07/08/19 Pt in bed, dry cough and audible wheezing noted. Is sweating while sitting in bed and able to talk in complete sentences but has noted labored breathing. Lungs are wheezing in all flanagan but no crackles or coarse sounds noted. Heart RRR no murmr, no lower leg edema. BS x4, non tender, soft abdomen. POC to continue abx, steroids, alb neb tx and repeat labs in the AM. Will get pt started on maintenance COPD meds. Pulm consult if no improvement with treatment. Vitals q8 PCP Mimi Procedures: Imaging and X-Rays 07/08/19 05:14 CXR [CHEST 2 VIEWS] [RAD] Stat Cardiology Procedures 07/08/19 04:01 Flavor Tank Tender NOW EKG NOW Abnormal Labs: Abnormal Lab Results 07/08/19 07/08/19 07/08/19 Range/Units 03:40 03:40 04:30 RBC (4.40-5.70) M/uL Hgb (14.0-18.0) gm/dl Hct (42.0-52.0) % MPV 10.8 H (7.4-10.4) fl Monocytes % 11.4 H (0-9) % Lymphocytes (16-45) % Monocytes (0-9) % Random Glucose 124 H (74-109) mg/dL Urine Protein 30 mg/dl H (NEGATIVE) Urine Bilirubin Small H (NEGATIVE) 07/09/19 07/09/19 07/10/19 Range/Units 06:14 06:14 06:35 RBC 4.17 L (4.40-5.70) M/uL Hgb 13.5 L (14.0-18.0) gm/dl Hct 40.2 L (42.0-52.0) % MPV 10.5 H (7.4-10.4) fl Monocytes % (0-9) % Lymphocytes 15.0 L (16-45) % Monocytes 11.0 H (0-9) % Random Glucose 127 H 110 H (74-109) mg/dL Urine Protein (NEGATIVE) Urine Bilirubin (NEGATIVE) 07/10/19 Range/Units 06:35 RBC 4.21 L (4.40-5.70) M/uL Hgb 13.9 L (14.0-18.0) gm/dl Hct 40.7 L (42.0-52.0) % MPV 10.9 H (7.4-10.4) fl Monocytes % (0-9) % Lymphocytes (16-45) % Monocytes 10.0 H (0-9) % Random Glucose (74-109) mg/dL Urine Protein (NEGATIVE) Urine Bilirubin (NEGATIVE) Condition at Discharge: (2) Stable Discharge Medications - Discharge Medications Prescriptions: Albuterol Sulfate 0.083% [Neb] [Albuterol Sulfate] 2.5 mg INH Q4H #120 nebulization solution Ipratropium/Albuterol [Duoneb] 3 ml INH RESP.Q6H PRN #30 ampul.neb PRN Reason: Wheezing Prednisone [Prednisone 20Mg] 40 mg PO ASDIR #12 tab Prednisone [Prednisone 5Mg] 5 mg PO DAILY #4 tab Benzonatate [Tessalon Perles] 100 mg PO TID PRN #30 capsule PRN Reason: Cough Azithromycin [Zithromax] 500 mg PO DAILY #4 tab Home Medications: Ambulatory Orders Albuterol Sulfate [Ventolin Hfa] 1 - 2 puff IH .EVERY 4-6 HOURS PRN 07/08/19 [Last Taken 07/07/19] Albuterol Sulfate 0.083% [Neb] [Albuterol Sulfate] 2.5 mg INH Q4H #120 nebuli zation solution 07/10/19 [Last Taken Unknown] Azithromycin [Zithromax] 500 mg PO DAILY #4 tab 07/10/19 [Last Taken Unknown] Benzonatate [Tessalon Perles] 100 mg PO TID PRN #30 capsule 07/10/19 [Last Taken Unknown] Guaifenesin [Mucinex] 600 mg PO BID tabcr 07/10/19 [Last Taken Unknown] Ibuprofen [Motrin 600Mg] 600 mg PO Q8H PRN tablet 07/10/19 [Last Taken Unknown] Ipratropium/Albuterol [Duoneb] 3 ml INH RESP.Q6H PRN #30 ampul.neb 07/10/19 [Last Taken Unknown] Montelukast Sodium [Singulair] 10 mg PO DAILY #10 tablet 07/10/19 [Last Taken Unknown] Prednisone [Prednisone 20Mg] 40 mg PO ASDIR #12 tab 07/10/19 [Last Taken Unknown] Prednisone [Prednisone 5Mg] 5 mg PO DAILY #4 tab 07/10/19 [Last Taken Unknown] Discharge Plan - Discharge Instructions Activity at Discharge: Increase Activity as Tolerated Diet at Discharge: Advance to Usual Diet Additional Instructions: You have an establishing care appointment with VIK Salinas on Thursday, July 25, 2019 at 10:30 at the [facility], in [place], [place]. Please complete your new patient paperwork before your appointment. [address] [place] [address] You have a follow up pulmonology appointment with Dr Carnes 07/24/19, at 10am, at the speciality clinic her at [facility]. Please park in front of the main hospital, Entrance A. Present to the specialty clinic 15 minutes before your appointment to register and get new patient paperwork completed. You are not to work for 2 weeks following this hospitalization, you have an asthma exacerbation with new onset asthma. PLEASE DO YOUR BEST TO REMAIN SMOKE FREE. Continue your antibiotics until meds are finished, your steroids are going to taper down as directed. Use alb neb tx q4 hours and duo neb q6hr but not together, for shortness of breath, wheezing Quality Measures - Quality Measures Quality Measures: Documentation of Current Medications in Medical Record, Screening for High Blood Pressure and F/U Documented - Current Medications Quality Measure: Measure #130: Documentation of Current Medications Documentation of Current Medications: <Current Medications Documented/Reviewed> [G8427] - Blood Pressure Screening Quality Measure: Screening for High Blood Pressure and Follow-Up Documented Does Patient Have Any of the Following: No Blood Pressure Classification: Hypertensive Reading Systolic Measurement: 147 Diastolic Measurement: 104 Screening for High Blood Pressure: < First Hypertensive BP, F/U Documented > [G8950] First Hypertensive Follow-up Interventions: Referral to alternative/primary care provider. - Elder Abuse Suspicion Index EASI Reference Information: Cynthia MUELLER, Juli C, Elizabeth D, Gwendolyn Washburn.Development and validation of a tool to assist physicians identification of elder abuse: The Elder Abuse Suspicion Index (EASI ). Journal of Elder Abuse and Neglect, 2008; 20 (3): 276-300.
--- NOTE | 2019-07-11 08:13 | Medical Records Consult ---
DATE OF CONSULTATION: 07/10/2019 REASON FOR CONSULTATION: Patient with dyspnea. This is a middle aged young male who is an active smoker with history of respiratory allergies who presented with worsening of dyspnea and cough. He was admitted through the Emergency Room for worsening of dyspnea. The patient stated that his cough is productive of yellow phlegm and he had a fever at home before admission. He was treated as an outpatient empirically for upper respiratory infection recently with Tamiflu. 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 Since admission the patient was started on DuoNeb and added Breo. He is also on Prednisone orally 40 mg daily. He was started on empiric Rocephin and Zithromax. His chest x-ray showed no infiltrate. PAST MEDICAL HISTORY: 1. Nasal and sinus allergies. 2. History of active smoking, quit a few days ago. 3. Socially an active smoke one pack a day for a long time. He had a 45-pack year history of smoking. He denies any abuse of drugs. FAMILY HISTORY: Patient denies any major significant family history like asthma or similar problems. REVIEW OF SYSTEMS: As mentioned in the history of present illness he denies any major headache or focal weakness. He denies any chest pain. He denies any abdominal pain or change in his bowel habits. He denies any headache or vision changes. He denies any neck pain, any lymph node enlargement or swallowing difficulty. He denies any urinary retention. He denies any leg swelling or inflammation. He denies any joint swelling, inflammation or any skin rash. PHYSICAL EXAMINATION: Alert and oriented. He does not look in acute distress. He is currently off oxygen. He is afebrile. His blood pressure has been running well. NECK: Supple. No JVD. HEENT: His pupils are equal and reactive to light and accommodation. HEART: Regular rate and rhythm. No runs or gallops. LUNGS: Decreased breath sounds bilaterally. Active wheezing with expiration. No crackles. ABDOMEN: Soft. Active bowel sounds. EXTREMITIES: No edema. SKIN: No rash. LABS: His labs were reviewed personally. His white cell count was 10.2, hemoglobin was 13.5, and his creatinine was 0.7. His chest x-ray showed no active infiltrate. 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 HIS PRESENTATION AND EXAM IS MORE LIKELY CONSISTENT WITH ASTHMATIC EXACERBATION INITIATED WITH UPPER RESPIRATORY INFECTION. I AGREE WITH THE CURRENT TREATMENT. THE PATIENT IS ALREADY IMPROVING. HE MAY BE DISCHARGED HOME TODAY IF NEEDED. HE NEEDS TO BE ON ALBUTEROL NEEDED PLUS BREO HIGH DOSE 200 TAKING ONE PUFF DAILY. FINISH THE COURSE OF TAPERING STEROID AND THE SEVEN DAYS OF ZITHROMAX ORALLY INCLUDING WHAT HE HAS BEEN GIVEN HERE AT THE HOSPITAL. HE NEEDS FOLLOW-UP AN OUTPATIENT FOR ALLERGY EVALUATION. THE PATIENT WAS RECOMMENDED STRONGLY TO QUIT SMOKING AND HE AGREES ON THAT. HE SAID HE IS NOT GOING BACK TO SMOKING AGAIN. HE MAY STAY OFF WORK FOR TWO WEEKS UNTIL HE RECOVERS FROM HIS CURRENT ILLNESS. JOB NUMBER: [id number] MTDD
== END 2019-07-10 17:01 | disposition home or self-care (01) | DRG 195 ==
LOC: ER 03:35 → MEDSURG 07:30
PROVIDERS: ADMIT Internal Medicine; ATTEND Internal Medicine
DX: J18.9 Pneumonia, unspecified organism (principal); R09.02 Hypoxemia; Z87.891 Personal history of nicotine dependence; Z87.820 Personal history of traumatic brain injury
CPT/HCPCS: 71046; 80048; 80053; 81001; 83880; 84484; 85025; 85027; 85379; 87400; 90686; 93005; 93010; 94640; 94664; 94667; 94761; 96374; 99223; 99233; 99239; 99285; J0456; J0696; J1650; J2930; J7030; J7050; J7512; J7613